=== PATIENT | male | born 1965 | race Caucasian/White ===

== ENCOUNTER → 2017-02-11 08:45 | Outpatient (CLI) | payer OTHER ==
[~2017-02-11] VITALS: Ht 172.7 cm; Wt 83.9 kg
[~2017-02-11 08:45] MED LIST: ASPIRIN81 MG PO; CRESTOR10 MG PO; GLUCOPHAGE1000 MG PO; OMEPRAZOLE20 M1 PO
[2017-02-11 10:48] VITALS: Ht 172.7 cm; Wt 83.9 kg
[2017-04-15 07:15] VITALS: Ht 172.7 cm; Wt 83.9 kg
== END | disposition home or self-care (01) ==
LOC: D.FANS 08:45
DX: E11.9 Type 2 diabetes mellitus without complications (principal)

== ENCOUNTER 2017-04-15 05:31 | Day surgery (SDC) | payer OTHER ==
[~2017-04-15] VITALS: Ht 172.7 cm; Wt 86.4 kg
--- NOTE | ~2017-04-15 | OP ---
PATIENT NAME: JOHN HERRMANN MEDICAL RECORD: [id number] :69 LOCATION:D.OPS ADMISSION DATE: SURGEON: ÓSCAR RODRIGUEZ MD DATE OF OPERATION: 04/15/2017 PREOPERATIVE DIAGNOSIS: Desires screening colonoscopy. POSTOPERATIVE DIAGNOSES: Desires screening colonoscopy with marginal prep, also 4 colorectal polyps ranging in size from 7 mm to 1.1 cm. PROCEDURES: 1. Total colonoscopy to cecum. 2. Hot biopsy forceps polypectomies times 4. SURGEON: Óscar Rodriguez MD INTERNATIONAL PROJECT ENGINEER: None. BLOOD LOSS: Minimal. ANESTHESIA: IV sedation. Reason for the anesthesia staff being present during the procedure includes anxiety regarding the procedure. ENDOSCOPIC COURSE: The patient was conveyed to endoscopy suite electively on 04/15/2017. IV sedation was induced by the anesthesia staff. The patient was placed in the Davila position. A digital rectal examination was performed. The prostate was symmetric and without nodules. A colonoscope was inserted through the anus. It was easily advanced to the cecum. Upon withdrawal, I irrigated and aspirated extensively. The prep was marginal. The pullback was greater than a 15-minute pullback. Four colorectal polyps were removed in their entireties utilizing hot biopsy forceps polypectomy technique. I then unretroflexed the scope and removed it under direct vision. I will see the patient in my office in 2-3 weeks. I will plan for his next surveillance colonoscopy to take place in 1 year. TRANSINT:[id number] Voice Confirmation ID: [id number] DOCUMENT ID: [id number] ÓSCAR RODRIGUEZ MD CC: [id number] DICTATION DATE: 04/15/17 0849 INSTRUCTOR DECORATING: 04/15/17 0939 [place] [address]
[2017-04-15] MEDS ORDERED: GLUCOPHAGE1000 MG PO (06:29)
[2017-04-15] MEDS ORDERED: CRESTOR10 MG PO (06:31)
[2017-04-15] MEDS ORDERED: ASPIRIN81 MG PO (06:32)
[2017-04-15] MEDS ORDERED: OMEPRAZOLE20 M1 PO (06:33)
[2017-04-15 07:15] VITALS: BP 127/78; Ht 172.7 cm; Wt 86.4 kg
[2017-04-15 07:30] LABS: HEMATOCRIT 42.5 % (42.0-54.0); HEMOGLOBIN 14.7 g/dL (13.5-17.5); MCH 32.6 pg (26.0-34.0); MCHC 34.6 g/dL (31.0-37.0); MCV 94.2 fL (80.0-100.0); MEAN PLATELET VOLUME 9.5 fL (7.4-10.4); RBC 4.51 10x6/uL (4.20-6.10); RDW 12.5 % (11.5-14.5)
[2017-04-15 07:40] LABS: CALC OSMOLALITY 280 mosm/kg (275-300); CALCIUM 8.9 mg/dL (8.5-10.1); CARBON DIOXIDE 24.1 mmol/L (21.0-32.0); CHLORIDE - SERUM 105 mmol/L (98-107); GLUCOSE 141 mg/dL (74-106); POTASSIUM - SERUM 4.1 mmol/L (3.5-5.1); SODIUM 140 mmol/L (136-145); UREA NITROGEN 13 mg/dL (7-18); eGFR NON AFRICAN AMERICAN 84 mL/min (90-120)
== END 2017-04-15 09:45 | disposition home or self-care (01) ==
LOC: D.OPS 05:31
PROVIDERS: Anesthesiology
DX: Z12.11 Encounter for screening for malignant neoplasm of colon (principal); D12.5 Benign neoplasm of sigmoid colon; K63.5 Polyp of colon; Z01.812 Encounter for preprocedural laboratory examination

== ENCOUNTER 2018-06-16 06:35 | Day surgery (SDC) | payer OTHER ==
[~2018-06-16] VITALS: Ht 172.7 cm; Wt 88.6 kg
[2018-06-16 07:05] LABS: ANION GAP 12.8 mmol/L (8-16); CALCIUM 8.9 mg/dL (8.5-10.1); CARBON DIOXIDE 27.7 mmol/L (21.0-32.0); CREATININE - SERUM 1.2 mg/dL (0.6-1.3); POTASSIUM - SERUM 4.5 mmol/L (3.5-5.1)
[2018-06-16 07:29] LABS: HEMOGLOBIN 15.7 g/dL (13.5-17.5); MCH 32.3 pg (26.0-34.0); MCHC 34.9 g/dL (31.0-37.0); MCV 92.6 fL (80.0-100.0); MEAN PLATELET VOLUME 9.7 fL (7.4-10.4); RBC 4.86 10x6/uL (4.20-6.10); RDW 12.1 % (11.5-14.5); WBC 7.5 10x3/uL (4.8-10.8)
[2018-06-16] MEDS ORDERED: GLUCOPHAGE500 MG PO (07:31)
[2018-06-16] MEDS ORDERED: LISINOPRIL2.5 MG PO (07:33)
[2018-06-16] MEDS ORDERED: CHANTIX 1 MG TAB1 MG PO (07:34)
[2018-06-16 07:57] VITALS: BP 131/80; Ht 172.7 cm; Wt 88.6 kg
[2018-06-16] MEDS ORDERED: ATIVAN2 MG (08:06)
[2018-06-16] MEDS ORDERED: ATIVAN0.5 MG PO (08:07)
--- NOTE | 2018-06-18 16:42 | OP ---
PATIENT NAME: JOHN HERRMANN MEDICAL RECORD: [id number] :69 LOCATION:D.OPS ADMISSION DATE: SURGEON: ÓSCAR RODRIGUEZ MD DATE OF OPERATION: 06/16/2018 PREOPERATIVE DIAGNOSIS: History of colon polyps, in need of surveillance colonoscopy. POSTOPERATIVE DIAGNOSES: History of colon polyps, in need of surveillance colonoscopy with 3 new polyps ranging in size from 4 mm to 2.0 cm. These were all sessile polyps. PROCEDURES: 1. Total colonoscopy to cecum. 2. Hot biopsy forceps polypectomies times 3. SURGEON: Óscar Rodriguez MD BLIND EYELETTER: None. BLOOD LOSS: Minimal. ANESTHESIA: IV sedation. COMPLICATIONS: None. The risks, possible complications, and alternatives to the procedure were explained. A consent form was signed. ENDOSCOPIC COURSE: The patient was conveyed to the endoscopy suite electively on 06/16/2018. IV sedation was induced by the anesthesia staff. The patient was placed in the Davila position. A digital rectal examination was performed. The prostate was symmetric and without nodules. A colonoscope was inserted through the anus. It was easily advanced to the cecum. The prep was marginal. I slowly withdrew the endoscope. I irrigated and aspirated extensively. The polyp at 60 mm was placed into 2 separate specimen containers. A total of 3 hot biopsy forceps polypectomies were performed. A retroflexed view was obtained in the rectum. I then unretroflexed the scope and removed it under direct vision. I will see the patient in my office. I will plan for a surveillance colonoscopy in 3 years. TRANSINT:[id number] Voice Confirmation ID: [id number] DOCUMENT ID: [id number] ÓSCAR RODRIGUEZ MD at 1642 CC: RON SANTOS DO [id number] DICTATION DATE: 06/16/18 1022 SHOE STAMPER: 06/16/18 1505 [facility] 06/16/18 [id number] [place] [address]
--- NOTE | 2018-06-18 16:42 | HP ---
PATIENT: JOHN HERRMANN MEDICAL RECORD: [id number] ACCOUNT: [id number] LOCATION:[facility] : 69 ADMISSION DATE: 06/16/18 PCP: RON SANTOS DO HISTORY AND PHYSICAL EXAMINATION CHIEF COMPLAINT: History of colon polyps. HISTORY OF PRESENT ILLNESS: The patient has had no abdominal pain. He has had no rectal bleeding. He underwent colonoscopy about a year ago. It revealed 4 colorectal polyps. He is here today for surveillance colonoscopy. HOME MEDICATIONS: Please see the nursing list. ALLERGIES: POISON GONZÁLEZ AND SUMAC. He is ASA 2. SOCIAL HISTORY: He does not smoke. PAST MEDICAL AND SURGICAL HISTORY: Hypertension. No CHF. Noninsulin-dependent diabetes mellitus, shoulder surgery, colonoscopy, history of colon polyps. PHYSICAL EXAMINATION: GENERAL: The patient does not appear acutely ill. He does not appear chronically ill. VITAL SIGNS: Reviewed. EARS: External ears appear normal. EYES: Extraocular movements are intact. NECK: Trachea is midline. CHEST: No intercostal retractions. PULMONARY: Nonlabored, no stridor. ABDOMEN: No peritonitis with movement. IMPRESSION: History of colon polyps, here for surveillance colonoscopy. PLAN: Surveillance colonoscopy. TRANSINT:[id number] Voice Confirmation ID: [id number] DOCUMENT ID: [id number] MELANIE RODRIGUEZ MD at 1642 CC: RON SANTOS DO [id number] DICTATION DATE: 06/16/18 0913 MARINE TECHNICIAN: 06/16/18 1036 [facility] 06/16/18 [id number] [place] [address]
== END 2018-06-16 10:47 | disposition home or self-care (01) ==
LOC: D.OPS 06:35
PROVIDERS: Anesthesiology; ATTEND Surgery
DX: K63.5 Polyp of colon (principal); D12.8 Benign neoplasm of rectum; Z86.010 Personal history of colon polyps; Z01.812 Encounter for preprocedural laboratory examination